=== PATIENT | male | born 1980 | race Caucasian/White ===

== ENCOUNTER 2018-03-02 14:43 | Emergency (ER) | payer SELFPAY ==
[~2018-03-02] VITALS: Ht 180.3 cm; Wt 120.5 kg
[2018-03-02 15:50] VITALS: BP 156/92
== END 2018-03-02 17:10 | disposition home or self-care (01) ==
LOC: ER 14:43
DX: S16.1XXA Strain of muscle, fascia and tendon at neck level, initial encounter (principal); S63.501A Unspecified sprain of right wrist, initial encounter; V43.52XA Car driver injured in collision with other type car in traffic accident, initial encounter; Y93.89 Activity, other specified; Y99.8 Other external cause status; Y92.410 Unspecified street and highway as the place of occurrence of the external cause
CPT/HCPCS: 73110